=== PATIENT | female | born 1955 | race Caucasian/White ===

== ENCOUNTER → 2017-05-13 | Outpatient (CLI) | payer BC ==
[~2017-05-13] MED LIST: CITRUCEL PO; CLX20 PO; ELET40TA PO; IBUP600T44 PO; PRCUNK PO; TOPI25TA99 PO; TRIA37.5 PO; [UNRECOGNIZED DRUG - OTHER]
[2017-05-13 17:58] LABS: BASO % 0.4 %; BASO ABS # 0.03 K/uL (0-0.2); COMPLETE YES; EOS % 1.2 %; HEMATOCRIT 40.4 % (37-47); IG% 0.4 %; LYMPH % 35.8 %; MEAN CELL VOLUME 87.1 fL (80-100); MEAN CORPUSCULAR HEMOGLOBIN 29.7 pg (25-34); MEAN CORPUSCULAR HGB CONC 34.2 g/dl (32-36); MEAN PLATELET VOLUME 10.2 fL (7.4-10.4); MONO % 8.4 %; NEUT % 53.8 %; PLATELET COUNT 268 K/uL (130-400); RED BLOOD COUNT 4.64 M/uL (4.2-5.4); WHITE BLOOD COUNT 7.82 K/uL (4.8-10.8)
[2017-05-13 18:36] LABS: BLOOD UREA NITROGEN 18 mg/dl (7-18); CREATININE 0.68 mg/dl (0.60-1.20); GLUCOSE 92 mg/dl (70-99)
[2017-05-13 18:37] LABS: ALT/SGPT 18 U/L (12-78); BUN/CREATININE RATIO 26.2 (10-20); CALCIUM 9.3 mg/dl (8.5-10.1); CARBON DIOXIDE 27 mmol/L (21-32); CHLORIDE 104 mmol/L (98-107); CHOLESTEROL 201 mg/dl (0-200); POTASSIUM 3.5 mmol/L (3.5-5.1); SODIUM 139 mmol/L (136-145)
[2017-05-13 18:47] LABS: ALB/GLOB RATIO 1.2 (0.9-2); ALKALINE PHOSPHATASE 75 U/L (45-117); AST/SGOT 13 U/L (15-37); CHOLESTEROL/HDL RATIO 3.5; HDL CHOLESTEROL 58 mg/dl; LDL CHOLESTEROL CALCULATED 116 mg/dl; TRIGLYCERIDES 137 mg/dl (0-150); VERY LOW DENSITY LIPOPROT CALC 27 mg/dl
== END | disposition home or self-care (01) ==
LOC: C.LABMFLN 13:39
PROVIDERS: ATTEND Family Medicine
DX: R53.83 Other fatigue (principal); E78.5 Hyperlipidemia, unspecified; E55.9 Vitamin D deficiency, unspecified; E53.8 Deficiency of other specified B group vitamins

== ENCOUNTER → 2017-05-28 | Outpatient (CLI) | payer BC ==
--- NOTE | 2017-05-28 12:27 | EXERCISE STRESS ECHO ---
*NOTICE TO RECEIVING REPUBLICAN AGENCY This information is strictly Confidential and protected under [place] law. [place] law prohibits you from making any further disclosure of this information unless further disclosure is expressly permitted by the written consent of the person to whom it pertains or is authorized by law. A general authorization for the release of medical or other information is not sufficient for this purpose. Hospital accepts no responsibility if the information is made available to any other person, INCLUDING THE PATIENT. Interpretation Summary * Name: CARRIE CRABTREE Study Date: 05/28/2017 08:28 AM BP: 139/79 mmHg * Patient Location: [facility] HR: 63 * : 1955 (M/d/yyyy) Gender: Female Height: 62 in * Age: 62 yrs Ethnicity: [place] Weight: 139 lb * Ordering Physician: Barrington Myles * Referring Physician: Barrington Myles * Performed By: Shiela Victoria RDCS * * Reason For Study: CHEST DISCOMFORT * BSA: 1.6 m2 * -- Conclusions -- * 1. Negative exercise stress echo for ischemia at 88% MPHR. * 2. Negative stress ECG for ischemia. * 3. Above average functional capacity. Exercised 9:00 min, acheiving 10.1 METS. * 4. No exercise induced chest pain. Normal hemodynamic response to exercise. Low risk Burch treadmill score. * 5. Normal resting LV size and function. EF 60-65%. Normal RV size and function. Aortic valve sclerosis without stenosis. No other significant valvular pathology. * 6. No prior studies for comparison. Procedure Details * ECHOEX, CPT #16484 Left Ventricular Findings with Stress * This was essentially a normal study. Left Ventricle * The left ventricle is grossly normal size. * There is normal left ventricular wall thickness. * Ejection Fraction = 60-65%. * No regional wall motion abnormalities noted. * The left ventricular ejection fraction increases normally with stress. The left ventricular end-systolic cavity size reduces post-stress (normal response). The left ventricular wall motion with stress is normal. Right Ventricle * The right ventricle is grossly normal size. * The right ventricular systolic function is normal as assessed by tricuspid annular plane systolic excursion (TAPSE) (normal >1.5 cm). Atria * The left atrial size is normal. * Right atrial size is normal. * No ASD detected; PFO is not assessed. Mitral Valve * The mitral valve is grossly normal. * There is no mitral valve stenosis. * Significant mitral regurgitation is absent. Tricuspid Valve * The tricuspid valve is not well visualized, but is grossly normal. * There is trace tricuspid regurgitation. Aortic Valve * The aortic valve is trileaflet. * Aortic valve sclerosis mild, without significant aortic valvular stenosis. * No hemodynamically significant valvular aortic stenosis. * There is no significant aortic regurgitation. Pulmonic Valve * The pulmonary valve is inadequately visualized, but the Doppler data is adequate for interpretation. * There is no significant pulmonary regurgitation. Great Vessels * The aortic root and proximal ascending aorta are normal sized. Pericardium * There is no pericardial effusion. Stress Parameters * Normal baseline electrocardiogram. * Stress ECG: No ST changes. No arrhythmias. * No arrhythmia were noted with stress. * Above average functional capacity. Exercised 9 min, acheived 10.1 METs. * Rest heart rate was '63' BPM. * Rest blood pressure was '139/79' * Maximum heart rate achieved was 142 bpm. * Maximum heart rate was 88 % of maximum age-predicted heart rate. * Maximum blood pressure was '183/63' * Total exercise time was '9:00' * Maximum exercise MET level achieved was '10.10' METS * Maximum treadmill speed was '3.40' miles per hour. * Maximum treadmill elevation was '14.00'% grade. * Exercise was terminated due to 'ACHIEVING TARGET HR' Left Ventricular Findings with Stress * The study was technically good with many images being of high quality. MMode 2D Measurements and Calculations IVSd 0.89 cm IVSs 1.6 cm LVIDd 3.4 cm LVIDs 2.5 cm LVPWd 0.99 cm LVPWs 1.4 cm IVS/LVPW 0.90 FS 26.9 % EDV(Teich) 46.5 ml ESV(Teich) 21.5 ml EF(Teich) 53.7 % EDV(cubed) 38.3 ml ESV(cubed) 14.9 ml EF(cubed) 61.0 % % IVS thick 79.1 % % LVPW thick 44.4 % LV mass(C)d 88.7 grams LV mass(C)dI 54.2 grams/m\S\2 LV mass(C)s 124.8 grams LV mass(C)sI 76.2 grams/m\S\2 SV(Teich) 24.9 ml SI(Teich) 15.2 ml/m\S\2 SV(cubed) 23.4 ml SI(cubed) 14.3 ml/m\S\2 Ao root diam 2.8 cm Ao root area 6.0 cm\S\2 LA dimension 3.3 cm LA/Ao 1.2 LVAd ap4 28.0 cm\S\2 LVLd ap4 8.3 cm EDV(MOD-sp4) 75.5 ml EDV(sp4-el) 80.3 ml LVAs ap4 15.1 cm\S\2 LVLs ap4 6.4 cm ESV(MOD-sp4) 29.3 ml ESV(sp4-el) 30.3 ml EF(MOD-sp4) 61.2 % EF(sp4-el) 62.3 % LVAd ap2 28.2 cm\S\2 LVLd ap2 8.1 cm EDV(MOD-sp2) 77.8 ml EDV(sp2-el) 83.1 ml LVAs ap2 16.0 cm\S\2 LVLs ap2 6.7 cm ESV(MOD-sp2) 31.5 ml ESV(sp2-el) 32.5 ml EF(MOD-sp2) 59.4 % EF(sp2-el) 60.9 % LVLd %diff -1.99 % EDV(MOD-bp) 77.1 ml LVLs %diff 4.6 % ESV(MOD-bp) 31.3 ml EF(MOD-bp) 59.4 % SV(MOD-sp4) 46.2 ml SI(MOD-sp4) 28.2 ml/m\S\2 SV(MOD-sp2) 46.2 ml SI(MOD-sp2) 28.2 ml/m\S\2 SV(MOD-bp) 45.8 ml SI(MOD-bp) 27.9 ml/m\S\2 SV(sp4-el) 50.0 ml SI(sp4-el) 30.5 ml/m\S\2 SV(sp2-el) 50.6 ml SI(sp2-el) 30.9 ml/m\S\2 Doppler Measurements and Calculations MV E max cristian 93.5 cm/sec MV A max cristian 90.3 cm/sec MV E/A 1.0 MV dec time 0.24 sec Ao V2 max 176.2 cm/sec Ao max PG 12.4 mmHg Ao max PG (full) 7.2 mmHg LV V1 max PG 5.3 mmHg LV V1 max 114.7 cm/sec TR max cristian 197.4 cm/sec
== END | disposition home or self-care (01) ==
LOC: C.CPL 08:16
PROVIDERS: ATTEND Family Medicine
DX: R07.89 Other chest pain (principal)

== ENCOUNTER → 2017-12-03 | Outpatient (CLI) | payer BC ==
--- NOTE | 2017-12-03 13:58 | MAMMOGRAPHY REPORT ---
BILATERAL DIGITAL SCREENING MAMMOGRAM TOMOSYNTHESIS WITH CAD: 12/03/2017 CLINICAL HISTORY: Routine screening. The patient has no current complaints. TECHNIQUE: Breast tomosynthesis in addition to standard 2D mammography was performed. Current study was also evaluated with a Computer Aided Detection (CAD) system. COMPARISON: Comparison is made to exams dated: 11/27/2016 mammogram, 11/22/2015 mammogram, 11/16/2014 misa mogram, 11/10/2013 mammogram, 11/03/2012 mammogram, and 09/05/2012 mammogram - [facility]. BREAST COMPOSITION: The tissue of both breasts is heterogeneously dense, which may obscure small mas ses. FINDINGS: No suspicious masses, calcifications, or areas of architectural distortion are noted in ei ther breast. There has been no significant interval change compared to prior exams. Scattered bilater al benign-appearing calcifications are not significantly changed. IMPRESSION: ACR BI-RADS CATEGORY 2: BENIGN There is no mammographic evidence of malignancy. A 1 year screening mammogram is recommended. The pa tient will receive written notification of the results. Approximately 10% of breast cancers are not detected with mammography. A negative mammographic report should not delay biopsy if a clinically suggestive mass is present. Jane Moody M.D. ah/:12/03/2017 08:28:07 Consumer Relations Specialist: Neva RAMSEY)(M), [facility] letter sent: Normal 1/2 BI-RADS Code: ACR BI-RADS Category 2: Benign
== END | disposition home or self-care (01) ==
LOC: C.MAMM 07:41
PROVIDERS: ATTEND Family Medicine
DX: Z12.31 Encounter for screening mammogram for malignant neoplasm of breast (principal)